=== PATIENT | male | born 1975 | race Caucasian/White ===

== ENCOUNTER → 2019-11-25 | Outpatient (CLI) | payer BC ==
[~2019-11-25] MED LIST: ANTIVERT 25MG25 MG PO; CIPRO 500MG TA500 MG PO; NO HOME MEDICATIONS; ZOFRAN 4MG T4 MG/TAB PO
== END ==
LOC: COL.RAD 12:55
DX: R25.1 Tremor, unspecified (principal)
CPT/HCPCS: A9585

== ENCOUNTER 2020-10-07 20:35 | Emergency (ER) | payer BC ==
[~2020-10-07] VITALS: Ht 177.8 cm; Wt 77.3 kg
[2020-10-07 20:40] VITALS: BP 131/80; TEMP 99.4
[2020-10-07] MEDS ORDERED: BACTRIM DS 8001 TAB PO (22:47)
[2020-10-07 22:57] VITALS: PULSE 80
== END 2020-10-07 22:55 | disposition home or self-care (01) ==
LOC: COL.ER 20:35
DX: S62.633B Displaced fracture of distal phalanx of left middle finger, initial encounter for open fracture (principal); S61.223A Laceration with foreign body of left middle finger without damage to nail, initial encounter; S61.225A Laceration with foreign body of left ring finger without damage to nail, initial encounter; S61.211A Laceration without foreign body of left index finger without damage to nail, initial encounter; F17.210 Nicotine dependence, cigarettes, uncomplicated; W29.8XXA Contact with other powered hand tools and household machinery, initial encounter